=== PATIENT | female | born 1975 | race Caucasian/White ===

== ENCOUNTER → 2023-10-26 08:23 | Outpatient (REF) | payer BC, SELFPAY | LOC: HWWDC 08:23 | PROVIDERS: ATTENDING PHYSICIAN Obstetrics & Gynecology Gynecology; FAMILY PHYSICIAN Nurse Practitioner Family | DX: Z12.31 Encounter for screening mammogram for malignant neoplasm of breast (principal) | CPT/HCPCS: 77063; 77067 ==

== ENCOUNTER → 2024-03-23 13:08 | Outpatient (REF) | payer BC, SELFPAY | LOC: HWRAD 13:08 | PROVIDERS: ATTENDING PHYSICIAN Obstetrics & Gynecology Gynecology; FAMILY PHYSICIAN Family Medicine | DX: N93.9 Abnormal uterine and vaginal bleeding, unspecified (principal) | CPT/HCPCS: 76830; 76856 ==

== ENCOUNTER → 2024-05-18 06:20 | Day surgery (SDC) | payer BC, SELFPAY | LOC: GI 06:20 | PROVIDERS: ATTENDING PHYSICIAN Student in an Organized Health Care Education/Training Program | DX: Z12.11 Encounter for screening for malignant neoplasm of colon (principal); D12.2 Benign neoplasm of ascending colon | CPT/HCPCS: 45380; 88305 ==

== ENCOUNTER 2024-08-04 06:11 | Day surgery (SDC) | payer BC, SELFPAY ==
[2024-08-04 07:15] VITALS: BMI 25.0
[2024-08-04 07:17] VITALS: BMI 25.0
[2024-08-04 07:20] VITALS: BP 130/71
[2024-08-04 08:50] VITALS: BP 122/81
[2024-08-04 09:05] VITALS: BP 130/91
[2024-08-04 09:15] VITALS: BP 124/82
== END 2024-08-04 09:18 | disposition home or self-care (01) ==
LOC: SDS 06:11
PROVIDERS: ATTENDING PHYSICIAN Internal Medicine Gastroenterology
DX: D12.0 Benign neoplasm of cecum (principal); D12.2 Benign neoplasm of ascending colon; K64.0 First degree hemorrhoids
CPT/HCPCS: 45390; 45385; 88305

== ENCOUNTER → 2024-10-26 07:56 | Outpatient (REF) | payer BC, SELFPAY | LOC: HWWDC 07:56 | PROVIDERS: ATTENDING PHYSICIAN Obstetrics & Gynecology Gynecology; FAMILY PHYSICIAN Family Medicine | DX: Z12.31 Encounter for screening mammogram for malignant neoplasm of breast (principal) | CPT/HCPCS: 77063; 77067 ==

== ENCOUNTER → 2025-01-17 07:43 | Outpatient (REF) | payer BC, SELFPAY | LOC: WDC 07:43 | PROVIDERS: ATTENDING PHYSICIAN Obstetrics & Gynecology Gynecology; FAMILY PHYSICIAN Family Medicine | DX: R92.2 Inconclusive mammogram (principal); R92.333 Mammographic heterogeneous density, bilateral breasts | CPT/HCPCS: 76641 ==

== ENCOUNTER 2025-02-14 06:25 | Day surgery (SDC) | payer BC, SELFPAY | END 2025-02-14 10:23 | disposition home or self-care (01) | LOC: GI 06:25 | PROVIDERS: ATTENDING PHYSICIAN Student in an Organized Health Care Education/Training Program | DX: Z12.11 Encounter for screening for malignant neoplasm of colon (principal); K63.5 Polyp of colon; Z86.0101 Personal history of adenomatous and serrated colon polyps; Z98.890 Other specified postprocedural states | CPT/HCPCS: 45380; 88305 ==